=== PATIENT | female | born 1965 | race Caucasian/White ===

== ENCOUNTER 2019-02-03 06:50 | Day surgery (SDC) | payer BC ==
[~2019-02-03] VITALS: Ht 147.3 cm; Wt 65.8 kg
[2019-02-03] MEDS ORDERED: CEFAZOLIN SOD 1 GM in D5W 50 ML IV ONE (07:00)
[2019-02-03] MEDS ORDERED: GLYCOPYRROLATE 0.2 MG/ML VIAL IJ ONE (09:06)
[2019-02-03] MEDS ORDERED: fentaNYL CITRATE 250 MCG/5 ML AMP IV ONE (09:06)
[2019-02-03] MEDS ORDERED: PROPOFOL 200MG/ 20ML VIAL (DIPRIVAN) IV ONE (09:06)
[2019-02-03] MEDS ORDERED: NS IRRIG SOLN 1000 ML IR ONE (09:06)
[2019-02-03] MEDS ORDERED: MIDAZOLAM HCL 5 MG/5 ML VIAL IVP ONE (09:06)
[2019-02-03] MEDS ORDERED: SEVOFLURANE 15 MIN GAS INH ONE (09:06)
[2019-02-03] MEDS ORDERED: DEXAMETHASONE SOD PHOSPHATE 4 MG/ML VIAL IVP ONE (09:06)
[2019-02-03] MEDS ORDERED: LR 1,000 ML IV.SOLN IV ONE (09:06)
[2019-02-03] MEDS ORDERED: NEOSTIGMINE METHYLSULFATE 1 MG/ML, 10 ML VIAL IVP ONE (09:06)
[2019-02-03] MEDS ORDERED: BUPIVACAINE /PF 0.25% 30 ML VIAL INJ ONE (09:06)
[2019-02-03] MEDS ORDERED: ROCURONIUM BROMIDE 10 MG/ML (ZEMURON) IV ONE (09:06)
[2019-02-03] MEDS ORDERED: ONDANSETRON HCL 4 MG/2 ML VIAL IVP ONE (09:06)
[2019-02-03] MEDS ORDERED: D5/0.45 NS 1,000 ML IV SCH (10:00)
[2019-02-03] MEDS ORDERED: ACETAMINOPHEN/CODEINE 300 MG-30 MG TABLET PO PRN (10:00)
[2019-02-03 11:01] VITALS: BP_SYST 137
== END 2019-02-03 12:15 | disposition home or self-care (01) ==
LOC: SMU 06:50 → SDS 06:50
PROVIDERS: ATTEND Colon & Rectal Surgery
DX: N60.31 Fibrosclerosis of right breast (principal); R92.0 Mammographic microcalcification found on diagnostic imaging of breast; E03.9 Hypothyroidism, unspecified; M81.0 Age-related osteoporosis without current pathological fracture; D68.59 Other primary thrombophilia; E66.9 Obesity, unspecified; Z68.34 Body mass index [BMI] 34.0-34.9, adult; L40.9 Psoriasis, unspecified; Z85.3 Personal history of malignant neoplasm of breast; Z98.890 Other specified postprocedural states; Z68.30 Body mass index [BMI] 30.0-30.9, adult; Z79.899 Other long term (current) drug therapy; Z88.2 Allergy status to sulfonamides; Z88.8 Allergy status to other drugs, medicaments and biological substances; Z83.3 Family history of diabetes mellitus; Z80.3 Family history of malignant neoplasm of breast; Z90.710 Acquired absence of both cervix and uterus
CPT/HCPCS: 19081; 19301; 88307; J0690; J1100; J2250; J2405; J2704; J2710; J3010; J3490 ×2; J7060; J7120